=== PATIENT | female | born 1945 | race Caucasian/White ===

== ENCOUNTER 2024-06-26 10:06 | Outpatient (CLI) | payer MEDICARE, SELFPAY ==
--- NOTE | 2024-06-26 06:00 | DI.RAD_ITS ---
Exam(s) XR PAIN CLINIC LUMBAR SP 2V EXAM: XR PAIN CLINIC LUMBAR SP 2V CLINICAL HISTORY: DX: Lumbar Spondylosis. TECHNIQUE: Fluoroscopy was provided for the referring physician for guidance with performing pain cl inic injection procedure. COMPARISON: No exams were available for comparison FINDINGS: Please see procedure note for details. Fluoro time: 60.6 seconds RADIATION DOSE DELIVERED: Flacor=12.67 mGy
[2024-06-26 10:30] VITALS: BP 142/68; PULSE 66; RESP 20; TEMP 36.7; O2SAT 96
[2024-06-26 10:51] VITALS: PULSE 67; RESP 15; O2SAT 97
[2024-06-26 10:52] VITALS: BP 186/81; PULSE 67; RESP 21; O2SAT 97
[2024-06-26 11:00] VITALS: PULSE 68; RESP 20; O2SAT 95
[2024-06-26 11:01] VITALS: BP 174/83; PULSE 70; RESP 21; O2SAT 95
[2024-06-26] MEDS: Omnipaque 240 MG/ML 50 ML BTL IJ (11:15)
[2024-06-26] MEDS: Nerve Block Tray 1 EACH MC (11:16)
[2024-06-26] MEDS: Bupivacaine 0.5% Pres-Free 10 ML VIAL IJ (11:16)
--- NOTE | 2024-06-26 11:23 | PDOC.PAIN_ITS ---
Date of service: 06/26/24 Time of Service: 11:23 Pain Managment Procedure Note Procedure Note Procedure Note: PROCEDURE NOTE Bilateral Lumbar Medial Branch Blocks #1 Date of Service: June 26, 2024 Patient: ANJALI ROWAN Provider: Rusty Iyer DO, MPH ANJALI ROWAN has been referred to the [facility] for lumbar medial branch blocks. Pre-operative diagnosis: Lumbar Spondylosis without Myelopathy ICD-10 M47.816 Post-operative diagnosis: Same Pre-procedure pain: VAS= 10/10 COMMENTS: I previously evaluated her in the clinic. DEEPTI was interviewed and the medical records were reviewed. There were no medical, pharmacologic, radiographic or other structural contraindications to attempting fluoroscopically guided local anesthetic lumbar medial branch blocks. Risks and potential side effects were discussed. I also discussed the potential benefit(s) of the procedure with ANJALI, and voiced concerns were addressed. After ANJALI was completely informed about the procedure, the printed consent form was signed. A standard time-out procedure was performed. ANJALI was placed in the prone position on the fluoroscopy table. Automated blood pressure cuff and pulse oximeter were applied. The skin entry points for approaching the anatomic target points of the segmental medial branches of bilateral L3,L4,L5 were identified with fluoroscopy and marked. The skin at the target site area was thoroughly prepared with Chlorhexadine. The skin was then draped. Next, a 25 gauge 3.5 spinal needle was placed under fluoroscopic guid ance down on to the target point (the articular pillar) for each respective segmental medial branch. Position was confirmed in A/P and lateral views. Aspiration revealed no blood or clear fluid. Next, 0.25ml of omnipaque 240 was injected at each level. No contrast following a vascular or neural pattern was visualized under continuous fluoroscopy. Next, 0.25 ml of preservative-free 0.5% bupivicaine was injected at each level. There was no unusual discomfort expressed by ANJALI. The needles were withdrawn without difficulty. (49 mls of Omnipaque was wasted) ANJALI was observed and was without hemodynamic, neurologic, or allergic reactions.? Fluoroscopic images were digitally archived. Provacative testing using the Modified Wilkins's facet loading test- Left side Right Side Directly before the block VAS (0-10) = 10/10 VAS (0-10) = 10/10 Five minutes after the block VAS (0-10) = 0/10 VAS (0-10) = 0/10 Percentage relief obtained with this diagnostic block 100% 100% Any improved physical functioning directly after the blocks? Wants to move her back without any problem. Follow up plans and appointments were discussed with ANJALI. ANJALI was instructed to keep careful note of how the usual pain was modified by these injections. Specifically, to keep a pain diary for the next 4 hours using a numeric pain scale of 0-10 and report these results. Post procedure instruction was given as documented in the nursing documentation and having met discharge criteria, the patient was [facility] from the [facility]. Based on the medial branches blocked today, if they patient has adequate relief and we are able to proceed to radiofrequency ablation, the treatment should result in the denervation of the bilateral L4-L5 and L5-S1 facet joints. We would expect to denervate a total of 4 facets during the radiofrequency ablation. COMMENTS: No apparent complications. Post-procedure pain: VAS= 0/10 ANJALI will call back with 0-4 hour post-procedure pain scores. I personally performed the entire procedure. RUSTY IYER DO, MPH ABPM&R-subspecialty board certification in Pain Medicine [facility] Coding Conscious Sedation used for procedure: No CPT Codes: LMBB (includes Fluoro) Lumbar/Sacral, single lvl *BILATERAL* - 8280881 ([id number]~G5) LMBB (includes Fluoro) Lumbar/Sacral, 2nd lvl *BILATERAL* - [id number] ([id number]~G5) Additional Codes: Date of Service (88775) Date of service: 06/26/24
== END 2024-06-26 10:07 | disposition home or self-care (01) ==
LOC: PC 10:06
PROVIDERS: PCP Physician Assistant Medical; Visit Provider Preventive Medicine Occupational Medicine
DX: M47.816 Spondylosis without myelopathy or radiculopathy, lumbar region (principal); M54.50 Low back pain, unspecified
CPT/HCPCS: 64493; 64494; 72100; J0665; Q9967

== ENCOUNTER 2024-07-17 12:06 | Outpatient (CLI) | payer MEDICARE, SELFPAY ==
[2024-07-17 12:25] VITALS: BP 125/77; PULSE 71; RESP 20; TEMP 37; O2SAT 98
[2024-07-17 13:08] VITALS: PULSE 68; O2SAT 96
[2024-07-17 13:09] VITALS: BP 186/88; PULSE 67; RESP 15; O2SAT 96
[2024-07-17 13:10] VITALS: PULSE 74; RESP 28; O2SAT 95
[2024-07-17 13:16] VITALS: BP 168/92; PULSE 75; RESP 17; O2SAT 95
[2024-07-17 13:20] VITALS: PULSE 74; PULSE 75; RESP 21; O2SAT 94
--- NOTE | 2024-07-17 13:25 | DI.RAD_ITS ---
Exam(s) XR PAIN CLINIC LUMBAR SP 2V EXAM: XR PAIN CLINIC LUMBAR SP 2V CLINICAL HISTORY: DX: Lumbar Spondylosis TECHNIQUE: 2D and realtime digital imaging was performed. Radiologist not present. CONTRAST MATERIAL: None. COMPARISON: No exams were available for comparison FINDINGS: Fluoroscopy was provided for pain management therapy. Bilateral lumbar branch blocks. Please refer to procedure report or details. Radiation Exposure Index: Ka,r=26.57 mGy IMPRESSION: As above. RADIATION DOSE DELIVERED:
--- NOTE | 2024-07-17 13:26 | PDOC.PAIN_ITS ---
Date of service: 07/17/24 Time of Service: 13:32 Pain Managment Procedure Note Procedure Note Procedure Note: PROCEDURE NOTE Bilateral Lumbar Medial Branch Blocks #2 Date of Service: July 17, 2024 Patient: ANJALI ROWAN Provider: Rusty Iyer DO, MPH ANJALI ROWAN has been referred to the [facility] for lumbar medial branch blocks. Pre-operative diagnosis: Lumbar Spondylosis without Myelopathy ICD-10 M47.816 Post-operative diagnosis: Same Pre-procedure pain: VAS= 9/10 COMMENTS: She did very well with her first LMBBs ANJALI? was interviewed and the medical records were reviewed. There were no medical, pharmacologic, radiographic or other structural contraindications to attempting fluoroscopically guided local anesthetic lumbar medial branch blocks. Risks and potential side effects were discussed. I also discussed the potential benefit(s) of the procedure with ANJALI, and voiced concerns were addressed. After ANJALI was completely informed about the procedure, the printed consent form was signed. A standard time-out procedure was performed. ANJALI was placed in the prone position on the fluoroscopy table. Automated blood pressure cuff and pulse oximeter were applied. The skin entry points for approaching the anatomic target points of the segmental medial branches of bilateral L3,L4,L5 were identified with fluoroscopy and marked. The skin at the target site area was thoroughly prepared with Chlorhexadine. The skin was then draped. Next, a 25 gauge 3.5 spinal needle was placed under fluoroscopic guidance down on to the target point (the articular pillar) for each respective segmental medial branch. Position was confirmed in A/P and lateral views. Aspiration revealed no blood or clear fluid. Next, 0.25ml of omnipaque 240 was injected at each level. No contrast following a vascular or neural pattern was visualized under continuous fluoroscopy. Next, 0.25 ml of preservative-free 0.5% bupivicaine was injected at each level. There was no unusual discomfort expressed by ANJALI. The needles were withdrawn without difficulty. (49 mls of Omnipaque was wasted) ANJALI was observed and was without hemodynamic, neurologic, or allergic reactions.? Fluoroscopic images were digitally archived. Provacative testing using the Modified Wilkins's facet loading test- Left side Right Side Directly before the block VAS (0-10) = 9/10 VAS (0-10) = 9/10 Five minutes after the block VAS (0-10) = 0/10 VAS (0-10) = 0/10 Percentage relief obtained with this diagnostic block 100% 100% Any improved physical functioning directly after the blocks? Able to move her back without pain. Follow up plans and appointments were discussed with ANJALI. ANJALI was instructed to keep careful note of how the usual pain was modified by these injections. Specifically, to keep a pain diary for the next 4 hours using a numeric pain scale of 0-10 and report these results. Post procedure instruction was given as documented in the nursing documentation and having met discharge criteria, the patient was discharged from the [facility]. Based on the medial branches blocked today, if they patient has adequate relief and we are able to proceed to radiofrequency ablation, the treatment should result in the denervation of the bilateral L4-L5 and L5-S1 facet joints. We would expect to denervate a total of 4 facets during the radiofrequency ablation. COMMENTS: No apparent complications. Post-procedure pain: VAS= 0/10 ANJALI will call back with 0-4 hour post-procedure pain scores. I personally performed the entire procedure. RUSTY IYER DO, MPH ABPM&R-subspecialty board certification in Pain Medicine [facility] Coding Conscious Sedation used for procedure: No CPT Codes: LMBB (includes Fluoro) Lumbar/Sacral, single lvl *BILATERAL* - [id number] ([id number]~G5) LMBB (includes Fluoro) Lumbar/Sacral, 2nd lvl - 20250 (6134827 ~G) Bilateral Additional Codes: Date of Service (39629) Date of service: 07/17/24
[2024-07-17] MEDS: Nerve Block Tray 1 EACH MC (13:33)
[2024-07-17] MEDS: Omnipaque 240 MG/ML 50 ML BTL IJ (13:33)
[2024-07-17] MEDS: Bupivacaine 0.5% Pres-Free 10 ML VIAL IJ (13:34)
== END 2024-07-17 12:07 | disposition home or self-care (01) ==
LOC: PC 12:06
PROVIDERS: PCP Physician Assistant Medical; Visit Provider Preventive Medicine Occupational Medicine
DX: M54.50 Low back pain, unspecified (principal); M47.816 Spondylosis without myelopathy or radiculopathy, lumbar region
CPT/HCPCS: 64493; 64494; 72100; J0665; Q9967

== ENCOUNTER 2024-08-21 06:49 | Outpatient (CLI) | payer MEDICARE, SELFPAY ==
[2024-08-21] VITALS (20 sets, daily range): BP systolic 111–208; BP diastolic 61–145; PULSE 59–87; RESP 14–28; TEMP 36.6; O2SAT 89–98
--- NOTE | 2024-08-21 06:00 | DI.RAD_ITS ---
Exam(s) XR PAIN CLINIC LUMBAR SP 2V EXAM: XR PAIN CLINIC LUMBAR SP 2V CLINICAL HISTORY: DX: Lumbar Spondylosis. TECHNIQUE: Fluoroscopy was provided for the referring physician for guidance with performing pain cl inic injection procedure. COMPARISON: No exams were available for comparison FINDINGS: Please see procedure note for details. Fluoro time: 66.2 seconds RADIATION DOSE DELIVERED: linda Sam=16.91 mGy
[2024-08-21] MEDS: fentaNYL 100 MCG/2 ML VIAL IVP ×2 (08:15→08:50)
[2024-08-21] MEDS: Midazolam 2 MG/2 ML VIAL IVP (08:15)
[2024-08-21] MEDS: Lactated Ringers 500 ML 80 ML IV (08:26)
[2024-08-21] MEDS: methylPREDNISolone ACETATE 40 MG/ML VIAL IJ (09:00)
[2024-08-21] MEDS: Bupivacaine 0.5% Pres-Free 10 ML VIAL IJ (09:00)
[2024-08-21] MEDS: Nerve Block Tray 1 EACH MC (09:01)
[2024-08-21] MEDS: Lidocaine 2% Multi-Dose 20 ML VIAL IJ (09:01)
--- NOTE | 2024-08-21 10:23 | PDOC.PAIN ---
Date of service: 08/21/24 Time of Service: 10:23 Pain Managment Procedure Note Procedure Note Procedure Note: PROCEDURE NOTE BILATERAL LUMBAR RADIOFREQUENCY ABLATION Date of Service: August 21, 2024 Patient:? ANJALI ROWAN? Provider:? Rusty Iyer DO, MPH ANJALI ROWAN has been referred to the [facility] for Bilateral Lumbar Radiofrequency Ablation with the [employer] Machine.? Pre Operative Diagnosis: Lumbosacral Spondylosis without Myelopathy ICD-10 M47.816 Post Operative Diagnosis: Same Pre procedure pain; VAS= 10/10 Comments: Previously did very well with LMBBs X 2 PROCEDURE: Radiofrequency Ablation of medial branches - bilateral L3, L4, L5 and lateral branches of bilateral S1. ANJALI?was interviewed and the medical record was reviewed.? There were no medical, pharmacologic, radiographic or other structural contraindications to attempting fluoroscopically guided BILATERAL Lumbar Radiofrequency Ablation.?Risks and expected side effects as well as potential benefit of the procedure were reviewed with ANJALI, and the patient's voiced concerns were addressed.? The printed consent form was signed.? Standard time-out procedure was performed. ANJALI was brought into the fluoroscopy suite and positioned into the prone position on the fluoroscopy table and allowed to adjust to a position of comfort. A grounding pad was placed on the left abdomen. The sterile field was prepared using chlorhexidine preparation of the skin and sterile draping. Local anesthesia superficial and deep was provided by local infiltration of 2% lidocaine. A 17g 100 mm radiofrequency introducer needle was placed to the planned anatomic targets guided with intermittent fluoroscopy with a perpendicular approach to terminally place at the junction of the superior articular process and the transverse process of the bilateral L4, L5, the base of the sacral ala on the bilateral for the L5 medial branch nerve and the area between base of the sacral ala to the S1 foramen bilaterally. The stylets were removed and radiofrequency probes with a 4mm active tip were then inserted. Needle tip position of the probes was verified in the AP, oblique, and lateral views. At each site, the medial branch nerve was stimulated at 2 Hz to a maximum 1-2 volts determined to finalize safe needle and electrode placement. The patient was awake and responsive during this portion of the procedure. Each target was anesthetized with 1-2 mL of 2 % Lidocaine for anesthesia for lesioning and then each target was lesioned at 80 degrees Celsius for 2 minutes and 30 seconds. Tissue impedances were noted to be between 250 and 500 Ohms. Next, I injected 1/4 cc of Depomedrol (40 mg/cc) followed by 1 cc of 0.5% Bupivacaine at each segmental sensory nerve. There was no unusual discomfort expressed by ANJALI. The needles were withdrawn without difficulty and bandages placed over the needle placement sites, the patient was observed and was without hemodynamic, neurologic, or allergic reactions. Fluoroscopic images were digitally archived. POST PROCEDURE EVALUATION: IMPRESSION: 1. Summary of procedure. Medication given is documented in the MAR. 2. Follow up plan: ANJALI to contact [facility] as needed.?This procedure may be repeated if the patient achieves at least 50% improvement in pain/function for at least 6 months. 3. Estimated Blood Loss: <5 mls 4. Fluoroscopy time: Documented in the EMR. Follow up plans and appointments were discussed with the ANJALI. Post procedure instruction was given as documented in nursing documentation and having met discharge criteria, ANJALI was discharged from the [facility]. This advanced procedure uses cooled radiofrequency energy to safely target the sensory nerves responsible for sending pain signals.1 A radiofrequency generator transmits a small current of Radiofrequency energy through an insulated electrode, or probe, placed within tissue. Ionic heating, produced by the friction of charged molecules, thermally deactivates the nerves responsible for sending pain signals to the brain. Radiofrequency energy heats and cools the tissue at the site of pain. Unlike other Radiofrequency procedures, Coolief circulates water through the device while heating nervous tissue to create a larger treatment area, increasing the opportunity to help with pain. This combination targets the pain-transmitting nerves without excessive heating, leading to pain relief. COMMENTS: No apparent complications. Post-procedure pain: VAS= 0/10. I personally completed the entire procedure. RUSTY IYER DO, MPH ABPM&R - Subspecialty board certification in Pain Medicine [facility] Coding Conscious Sedation used for procedure: Yes CPT Codes: Single Facet Joint, Lumbar/Sacral cool - 98939E ([id number]~G) Bilateral Single Facet Joint, Lumbar/Sacral cool each add'l - 82754E (62570B21~G) Bilateral Additional Codes: Date of Service (74855) Date of service: 08/21/24
== END 2024-08-21 06:50 | disposition home or self-care (01) ==
PROVIDERS: PCP Physician Assistant Medical; Visit Provider Preventive Medicine Occupational Medicine
DX: M47.816 Spondylosis without myelopathy or radiculopathy, lumbar region (principal); M54.50 Low back pain, unspecified
CPT/HCPCS: 64635; 64636; 72100; J0665; J1010; J2003; J2250; J3010

== ENCOUNTER 2024-11-01 10:32 | Outpatient (CLI) | payer MEDICARE, SELFPAY ==
[2024-11-01 10:59] VITALS: BP 143/65; PULSE 70; RESP 18; TEMP 36.5; O2SAT 97
--- NOTE | 2024-11-01 11:00 | DI.RAD_ITS ---
Exam(s) XR PAIN CLINIC SACRIOILIAC 2V EXAM: XR PAIN CLINIC SACRIOILIAC 2V CLINICAL HISTORY: Dx: Sacroiliac Joint Dysfunction. TECHNIQUE: Fluoroscopy was provided for the referring physician for guidance with performing pain clinic injection procedure. COMPARISON: No exams were available for comparison FINDINGS: Please see procedure note for details. Fluoro time: 33.9 seconds RADIATION DOSE DELIVERED: Ka,r=7.4 mGy
[2024-11-01 11:24] VITALS: PULSE 69; RESP 18; O2SAT 97
[2024-11-01 11:30] VITALS: PULSE 71; RESP 20; O2SAT 95
[2024-11-01] MEDS: Nerve Block Tray 1 EACH MC (11:33)
[2024-11-01 11:34] VITALS: BP 164/92; PULSE 67; PULSE 72; RESP 27; O2SAT 94
--- NOTE | 2024-11-01 11:34 | PDOC.PAIN_ITS ---
Date of service: 11/01/24 Time of Service: 11:34 Pain Managment Procedure Note Procedure Note Procedure Note: PROCEDURE NOTE BILATERAL INTRA-ARTICULAR SACROILIAC JOINT INJECTION Date of Service: November 01, 2024 Patient: ANJALI ROWAN Provider: Rusty Iyer DO, MPH COMMENTS: I previously evaluated the patient in the office and their symptoms in relation to the sacroiliac joint pain have remained the same. Pre-operative diagnosis: Sacroiliac joint dysfunction ICD-10 M53.3 Post-operative diagnosis: Same Pre-procedure pain: VAS= 10/10 ANJALI ROWAN has been referred to our [facility] for a Bilateral intra-articular Sacroiliac joint injection. ANJALI was interviewed and the medical record reviewed. There were no medical, pharmacologic, radiographic or other structural contraindications to attempting a fluoroscopically-guided, contrast-enhanced, intra-articular Sacroiliac joint injection. The risks, benefits, and potential side effects of this procedure were reviewed with the patient. Questions and concerns were addressed. After it was clear that ANJALI was fully informed about the procedure, the printed consent form was signed by the patient and myself. ANJALI was placed in the prone position on the fluoroscopy table and an automated blood pressure cuff, 3 lead EKG, and pulse oximeter were applied. The skin entry point for approaching the Left sacroiliac joint was identified under the most advantageous fluoroscopic view and marked. Following thorough Chlorhexadine preparation of the skin and draping with sterile surgical drapes, 2 mls of 1% lidocaine was infiltrated into the skin at the entry point and the surrounding subcutaneous tissues. Next, a 3.5 22G spinal needle was placed under fluoroscopic guidance into the Left sacroiliac joint. Intra-articular placement was confirmed by a clear arthrogram resulting from the injection of 0.25ml of Omnipaque-240. Next, 1 ml of Depo- Medrol 40 mg/ml was injected intra- articularly with an initial reproduction of a significant component of the usual pain. This was followed with 1 ml of 1% Lidocaine. The needle was then removed without difficulty. (49 ml of Omnipaque-240 was wasted). The exact procedure was completed on the opposite sacroiliac joint. GERIs vital signs were stable throughout the procedure and were as recorded in nursing records. Follow up plans and appointments were discussed with ANJALI. Post procedure instructions were given as documented in nursing records. Having met discharge criteria, ANJALI was discharged from the [facility]. COMMENTS: Post-procedure pain: VAS= 0/10. If the patient receives at least 50% improvement in pain and/or function for at least 3 months, this procedure can be repeated if needed. I personally performed this entire procedure. RUSTY IYER DO, MPH ABPMR-subspecialty board certification in Pain Medicine [facility] Coding Conscious Sedation used for procedure: No CPT Codes: SI Joint Inj; incl Fluoro * BILATERAL* - [id number] (2484507~G5) Additional Codes: Date of Service (14002) Date of service: 11/01/24 Diagnoses: sacroiliac joint dysfunction
[2024-11-01] MEDS: Omnipaque 240 MG/ML 50 ML BTL IJ (11:37)
[2024-11-01 11:38] VITALS: BP 147/77; PULSE 69
[2024-11-01] MEDS: methylPREDNISolone ACETATE 80 MG/ML VIAL IJ (11:38)
== END 2024-11-01 10:33 | disposition home or self-care (01) ==
LOC: PC 10:32
PROVIDERS: PCP Physician Assistant Medical; Visit Provider Preventive Medicine Occupational Medicine
DX: M54.50 Low back pain, unspecified (principal); M53.3 Sacrococcygeal disorders, not elsewhere classified
CPT/HCPCS: 27096; 72200; J1010; Q9967

== ENCOUNTER 2025-01-20 10:38 | Outpatient (CLI) | payer MEDICARE, SELFPAY ==
--- NOTE | 2025-01-20 06:00 | DI.RAD_ITS ---
Exam(s) XR PAIN CLINIC LUMBAR SP 2V EXAM: XR PAIN CLINIC LUMBAR SP 2V CLINICAL HISTORY: Dx: Lumbar Radiculopathy. TECHNIQUE: Fluoroscopy was provided for the referring physician for guidance with performing pain clinic injection procedure. COMPARISON: No exams were available for comparison FINDINGS: Please see procedure note for details. Fluoro time: 40.1 seconds RADIATION DOSE DELIVERED: Flacor=10.53 mGy
[2025-01-20 10:49] VITALS: BP 140/78; PULSE 67; RESP 18; TEMP 36.5; O2SAT 98
--- NOTE | 2025-01-20 11:33 | PDOC.PAIN_ITS ---
Date of service: 01/20/25 Time of Service: 11:59 Pain Managment Procedure Note Procedure Note Procedure Note: Lumbar Interlaminar Epidural Steroid Injection ? Location: L2-3 ? Pre-procedure Diagnosis: M54.16- Radiculopathy, LUMBAR region ? Post-procedure Diagnosis:? The same as above ? Sedation:? ? None ? Medication: Depo-Medrol 80 mg, Omnipaque 1 mL ? Estimated blood loss:? less than 2 cc ? Surgeon:? Travis Friend MD COMMENT: Patient had bilateral SI joint injections as well as bilateral lumbar medial branch radiofrequency ablations with relief of her low back pain this does radiate to her thighs. She has some foraminal narrowing bilaterally at L2- 3. ? Procedure Detail:? The procedure and potential risks were explained to the patient and informed written consent was obtained. The patient was escorted to the procedure room and placed in the prone position. Pillows were utilized for proper positioning and comfort. Time out was performed in the procedure room with nursing staff confirming the patient's identity, procedure to be performed, allergies, and any blood thinning or anti-platelet medications.? The patient's neck and upper back was prepped with ChloraPrep and draped in a sterile fashion. Sterile technique was maintained throughout the procedure.? Sterile gloves were used, a face mask was worn, and new single dose vials of all medications were used with the top being swabbed with alcohol and given time to dry prior to withdrawal of medication. Lidocane 1% was used to anesthetize the skin.Using a 25-gauge 1.5 inch needle, 1% lidocaine was instilled into the superficial soft tissue overlying the targeted area to provide local anesthesia. With fluoroscopic guidance, a 17 -gauge Tuohy needle was advanced toward the interlaminar space of L2-3. The needle was then advance through the ligamentum flavum and into the posterior epidural space using the loss of resistance technique. Correct needle placement was confirmed through review of the AP and contralateral oblique fluoroscopic views. Follow-up Following negative aspiration, one cc of Omnipaque 240 contrast was injected which confirmed good flow throughout the epidural space and no evidence of vascular flow or flow into adjacent compartments. Next, following negative aspiration, 1 cc's of normal saline and 80mg of Depo-Medrol was injected. The needle was gently removed. The patient tolerated the procedure well and was transported to the recovery area for observation and discharge instructions. Permanent images saved and recorded. PAIN PRE-PROCEDURE 01/01 POST-PROCEDURE 0 Plan:? Follow up prn. COMMENT: Patient with MRI showing Modic changes and multiple levels. 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 . Would consider reevaluation for possible Injection of the pseudoarticulation or basivertebral nerve ablation depending how she does with this injection Coding Conscious Sedation used for procedure: No CPT Codes: Inj Spine L/S w/Imaging - 22237 ([id number] ~G) Additional Codes: Date of Service (31213) Date of service: 01/20/25 Diagnoses: M54.16- Radiculopathy, LUMBAR region
[2025-01-20 11:42] VITALS: PULSE 65; O2SAT 96
[2025-01-20 11:50] VITALS: PULSE 69; O2SAT 96
[2025-01-20] MEDS: Epidural Tray 1 EACH MC (12:02)
[2025-01-20] MEDS: methylPREDNISolone ACETATE 40 MG/ML VIAL IJ (12:02)
[2025-01-20] MEDS: Omnipaque 240 MG/ML 50 ML BTL IJ (12:02)
== END 2025-01-20 10:39 | disposition home or self-care (01) ==
LOC: PC 10:38
PROVIDERS: PCP Physician Assistant Medical; Visit Provider Anesthesiology Pain Medicine
DX: M54.50 Low back pain, unspecified (principal); M54.16 Radiculopathy, lumbar region
CPT/HCPCS: 62323; 72100; J1010; Q9967